=== PATIENT | female | born 2000 | race African-American/Black ===

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

== ENCOUNTER → 2022-03-13 | Outpatient (CLI) | payer MEDICAID ==
[~2022-03-13] MED LIST changes: +BENZ78AE5 TP; +DOCU-239 PO; +IBUP-844 PO
--- NOTE | 2022-03-13 15:41 | Diagnostic Imaging Report ---
INDICATION: anatomy survey TECHNIQUE: Multiple real-time grayscale images were obtained over the gravid uterus. COMPARISON: None FINDINGS: The cervix measures 4.5 cm in length. Placenta is anteriorly positioned and there is no previa. Fetus is in cephalic presentation. The amount of amniotic fluid appears visually appropriate. anatomy survey was performed and the following structures are visualized and normal: Lip/nose, stomach, cerebral ventricles, cerebellum, cisterna magna, spine, four-chamber heart, left ventricular outflow tract, right ventricular outflow tract, diaphragm, umbilical cord insertion and kidneys Biometrical measurements are as follows: Biparietal 4.47 cm, age 19 weeks 4 days. Head circumference 16.95 cm, age 19 weeks 5 days. Abdominal circumference 13.81 cm, age 19 weeks 2 days. Femur length 3.37 cm, age 20 weeks 4 days. Sonographic estimate age: 19 weeks 6 days. Sonographic estimated date of delivery: 08/01/2022. Estimated Weight: 315 gm (+/- 46 gm). LMP percentile: 17%. heart rate: 146 beats per minute. number: 1 of 1. IMPRESSION: 1. Single live intrauterine has normal survey. Dictated by: Dictated on workstation # [id number]
== END ==
LOC: RAD 09:42
PROVIDERS: ATTEND Nurse Practitioner Women's Health
DX: Z34.02 Encounter for supervision of normal first pregnancy, second trimester (principal); Z3A.19 19 weeks gestation of pregnancy
CPT/HCPCS: 76805

== ENCOUNTER 2022-05-12 15:22 | Outpatient (CLI) | payer MEDICAID ==
[~2022-05-12] VITALS: Ht 162.6 cm; Wt 84.3 kg
[2022-05-12 16:43] VITALS: BP 118/63
[2022-05-12 16:45] LABS: BILIRUBIN,URINE NEGATIVE (NEGATIVE); CLARITY,URINE SL CLOUDY; COLOR,URINE YELLOW; GLUCOSE, URINE (UA) NEGATIVE (NEGATIVE); KETONES,URINE NEGATIVE (NEGATIVE); LEUKOCYTE ESTERASE ,URINE 3+ (NEGATIVE); NITRITE,URINE NEGATIVE (NEGATIVE); PROTEIN,URINE NEGATIVE (NEGATIVE)
[2022-05-12 16:52] LABS: BACTERIA,URINE LARGE /HPF
[2022-05-12] MEDS ORDERED: CEPHALEXIN 250 MG (KEFLEX) CAP PO SCH (17:30)
[2022-05-12] MEDS ORDERED: CEPH500T PO (21:43)
--- NOTE | 2022-05-13 08:24 | Physician Query-Final Dx ---
Clinic Account Progress/Dx Physician Query: Please give diagnosis Please include # weeks gestation Date of Service May 12, 2022 at 15:22 MANDIE,JunMay 13, 2022 08:24
== END 2022-05-12 22:08 ==
LOC: WSo 15:22 → LDRP 15:22 → WSo 22:08
PROVIDERS: ATTEND Obstetrics & Gynecology
DX: O9A.213 Injury, poisoning and certain other consequences of external causes complicating pregnancy, third trimester (principal); Z3A.29 29 weeks gestation of pregnancy
CPT/HCPCS: 81000; 87088

== ENCOUNTER 2022-07-24 08:23 | Inpatient (IN) | payer MEDICAID ==
[~2022-07-24] VITALS: Ht 160 cm; Wt 88.7 kg
[2022-07-24] VITALS (42 sets, daily range): BP systolic 84–137; BP diastolic 44–77
[~2022-07-24 08:23] MED LIST changes: +CEPH500T PO
--- NOTE | 2022-07-24 08:57 | History & Physical-OB ---
OB - Chief Complaint & HPI Date/Time Date of Admission: 07/24/22 Date of Admission: Date seen by a Provider: Jul 24, 2022 Time Seen by a Provider: 08:55 Chief Complaint/History OB-Reason for Admission/Chief: Onset of Labor Hx : 3 Hx Para: 2 Expected Date of Delivery: Jul 28, 2022 Gestational Age in Weeks: 39 Gestational Age in Days: 3 Other reason for admission: Active labor Admission Nurse Assessment Rev: Yes History of Labs AB pos Antibody neg see prenatals GBS neg Allergies and Home Medications Allergies Coded Allergies: No Known Drug Allergies (Unverified , 12/11/14) Patient Home Medication List Home Medication List Reviewed: Yes Cephalexin (Cephalexin) 500 Mg Tablet, 500 MG PO QID, (Reported) Entered as Reported by: JANINA POWER on 05/12/222142 OB - History Hx of Present Care: Yes Ultrasounds: Normal mid trimester US Obstetrical Complications: None Medical Complications: None Delivery History Hx Blood Disorders: Yes (Sickle cell trait) Adverse Rxn to Tranfusion: No Patient Past Medical History Sickle cell trait Social History/Family History 2nd Hand Smoke Exposure: No Immunizations Hepatitis A: No Hepatitis B: No Tetanus Booster (TDap): Unknown OB - Admission Exam Physical Exam HEENT: NCAT Heart: Rhythm Normal Lungs: Clear Abdomen: Gravid Extremities: Normal Reflexes: Normal Cervical Dilatation: 7cm Effacement: 75% Station: -1 Membranes: Intact Heart Rate: 130's Accelerations: Accelerations Present Decelerations: No Decelerations Short Term Variability: Present Nut Grinder Variability: Average (6-25) Contractions on Admission: < 5 Minutes Apart Intensity: Firm OB - Assessment/Plan/Diagnosis Assessment Assessment: active labor Admission Dx 22 yo @ 39 week Active labor GBS neg Admission Status: Inpatient Order (span 2 midnights) Reason for Inpatient Admission: 22 yo @ 39 week Active labor GBS neg Plan Plan: Expectant Management BERTRAM SYED DO Jul 24, 2022 08:57
[2022-07-24] MEDS ORDERED: OXYTOCIN PRE-MIX DRIP 500 ML IV ONE (09:03)
[2022-07-24 09:14] LABS: BILIRUBIN,URINE NEGATIVE (NEGATIVE); CLARITY,URINE SL CLOUDY; COLOR,URINE YELLOW; GLUCOSE, URINE (UA) NEGATIVE (NEGATIVE); KETONES,URINE NEGATIVE (NEGATIVE); LEUKOCYTE ESTERASE ,URINE NEGATIVE (NEGATIVE); NITRITE,URINE NEGATIVE (NEGATIVE); PH,URINE 6.5 (5-9); PROTEIN,URINE NEGATIVE (NEGATIVE)
[2022-07-24] MEDS ORDERED: D5 LR IV SOLUTION 1,000 ML IV SCH (09:15)
[2022-07-24 09:18] LABS: BASOPHILS % (AUTO) 0 % (0-10); EOSINOPHILS # (AUTO) 0.1 10^3/uL (0.0-0.3); EOSINOPHILS % (AUTO) 1 % (0-10); HEMATOCRIT 31 % (35-52); HEMOGLOBIN 10.4 g/dL (11.5-16.0); LYMPHOCYTES % (AUTO) 29 % (12-44); MEAN CORPUSCULAR HEMOGLOBIN 25 pg (25-34); MEAN CORPUSCULAR HGB CONC 33 g/dL (32-36); MEAN CORPUSCULAR VOLUME 75 fL (80-99); MEAN PLATELET VOLUME 10.2 fL (9.0-12.2); MONOCYTES # (AUTO) 0.5 10^3/uL (0.0-1.0); MONOCYTES % (AUTO) 5 % (0-12); NEUTROPHILS # (AUTO) 6.7 10^3/uL (1.8-7.8); NEUTROPHILS % (AUTO) 65 % (42-75); PLATELET COUNT 142 10^3/uL (130-400); WHITE BLOOD COUNT 10.3 10^3/uL (4.3-11.0)
[2022-07-24] MEDS ORDERED: fentaNYL 2 mcg/ml BUPIVA 0.125 100 ML ONE (09:19)
[2022-07-24] MEDS ORDERED: BUPIVACAINE 0.25% 10 ML (SENSORCAINE) VIAL ONE (09:32)
[2022-07-24] MEDS ORDERED: fentaNYL INJ 100 MCG/2 ML AMP ONE (09:32)
[2022-07-24 09:36] LABS: BACTERIA,URINE TRACE /HPF; SQUAMOUS EPITHELIAL CELL,UR 0-2 /HPF; WBC,URINE 0-2 /HPF
[2022-07-24] MEDS ORDERED: LACTATED RINGERS 1,000 ML IV ONE (10:45)
[2022-07-24] MEDS ORDERED: ONDANSETRON 4 MG/2 ML (SDV) Z0FRAN IV PRN (10:45)
[2022-07-24] MEDS ORDERED: CATHETER FLUSH 10 ML SYR IV PRN (10:45)
[2022-07-24] MEDS ORDERED: fentaNYL 2 mcg/ml BUPIVA 0.125 100 ML IV SCH (10:45)
[2022-07-24] MEDS ORDERED: diphenhydrAMINE 50 MG/ML INJ (BENADRYL) IV PRN (10:45)
[2022-07-24] MEDS ORDERED: NALOXONE 0.4 MG/ML 1 ML (NARCAN) VIAL IV PRN ×2 (10:45→15:45)
[2022-07-24] MEDS ORDERED: CATHETER FLUSH 10 ML SYR IV SCH ×2 (14:00→22:00)
[2022-07-24] MEDS: OXYTOCIN PRE-MIX DRIP 500 ML IV SCH ×2 (15:15→15:51)
--- NOTE | 2022-07-24 15:28 | OB Labor & Delivery Record ---
L&D History Date of Service Date of Service: Jul 24, 2022 History Expected Date of Delivery: Jul 28, 2022 Gestational Age in Weeks: 39 Hx : 3 Hx Para: 2 Complications Operative Indications (Cesarea: N/A-Vaginal Delivery Intrapartal Events: None L&D Stage1 Stage One Onset of Labor - Date: Jul 24, 2022 Monitors and Tracing Monitor Mode: External Monitor Accelerations: Uniform Monitor Decelerations: None Cash Room Clerk Variability: Average (6-10) Short Term Variability: Present Presentation: Vertex Rupture of Membranes Spontaneous Ruture of Membrane: Yes Amniotic Membrane Rupture Time: 14:00 Amniotic Membrane Fluid Desc.: Clear Progress/Notes Patient admitted in active labor at 7 cm dialated. Received an epidural and no further augmentation, SROM spontanously occured with checking patient and found to be 9-10 cm. L&D Stage2 Stage Two Stage II Date: Jul 24, 2022 Monitors and Tracing Monitor Mode: External Monitor Accelerations: Uniform Monitor Decelerations: Variable Cash Room Clerk Variability: Average (6-10) Short Term Variability: Present Position: Right Occiput Anterior Presentation: Vertex Cord Descript/Complications Cord Vessel Description: 3 Vessels Delivery Type Infant Delivery Method: Spontaneous Vaginal Anterior Shoulder: Right Episiotomy/Perineal Laceration Laceraction(s)/Extensions: No Condition of Infant Delivery 1 minute Comment: 8 5 minute Comment: 9 Notes Live female weight 8lbs 6 oz Condition of Condition of Infant: Living Exam: No Observed Abnormalities Resuscitation Resuscitation: N/A - Spontaneous Resp L&D Stage3 Stage Three Stage III Date: Jul 24, 2022 Pictocin Pitocin Administration Comment: 30 mu wide open after delivery of placetna Placenta Delivery Placenta Delivery: Spontaneous Delivery Summary Summary Estimated blood loss (mL): 300 Attending at delivery: Bertram Syed DO Condition of Delivery Examined: Cervix Examined, Uterus Explored Post Hemorrhage: No Condition of Mother stable Condition of (s) stable BERTRAM SYED DO Jul 24, 2022 15:28
--- NOTE | 2022-07-24 15:33 | Discharge Inst-Women's Service ---
Discharge Inst-Women's Serv Depart Medication/Instructions New, Converted or Re-Newed RX: Transmitted to Pharmacy Final Diagnosis PPD 1 NVD Problems Reviewed?: Yes Consults/Follow Up Additional Follow Up: Yes Orders/Referrals Dr. Syed in 6 weeks Activity Activity: Activity as Tolerated Driving Instructions: No Driving for 1 Week NO SMOKING: NO SMOKING Nothing Inside Vagina: No Douching, No [place], No Tampons Diet Discharge Diet: No Restrictions Symptoms to Report to : Bleeding Excessive, Pain Increased, Fever Over 101 Degrees F, Vaginal Bleeding Increase, Questions/Concerns For Any Problems or Questions: Contact Your Physician BERTRAM SYED DO Jul 24, 2022 15:33
[2022-07-24] MEDS ORDERED: DOCU100C37 PO (15:42)
[2022-07-24] MEDS ORDERED: IBUP-1773 PO (15:42)
[2022-07-24] MEDS ORDERED: ACET-93 PO (15:42)
[2022-07-24] MEDS ORDERED: BENZ78AE5 TP (15:42)
[2022-07-24] MEDS ORDERED: MEASLES,MUMPS,RUBELLA 1 EA INJ SQ ONE (15:45)
[2022-07-24] MEDS ORDERED: TETANUS,DIPTH,PERTUSS P/F (BOOSTRIX) 0.5 ML VIAL IM ONE (15:45)
[2022-07-24] MEDS ORDERED: BENZOCAINE/MENTHOL (DERMOPLAST) 56 ML CAN TP PRN (15:45)
[2022-07-24] MEDS ORDERED: DIBUCAINE 1% OINTMENT 28 GM TUBE TOP PRN (15:45)
[2022-07-24] MEDS ORDERED: WITCH HAZEL(TUCKS) 40 EA JAR TOP PRN (15:45)
[2022-07-24] MEDS: ACETAMINOPHEN 500 MG TAB (TYLENOL) PO SCH ×2 (15:50→21:17)
[2022-07-24] MEDS: IBUPROFEN 600 MG (MOTRIN) TAB PO SCH ×2 (15:51→21:17)
[2022-07-24] MEDS: DOCUSATE SODIUM 100 MG (COLACE) CAP PO SCH (21:17)
[2022-07-25 00:20] VITALS: BP 112/64
[2022-07-25] MEDS: IBUPROFEN 600 MG (MOTRIN) TAB PO SCH ×3 (03:09→17:04)
[2022-07-25] MEDS: ACETAMINOPHEN 500 MG TAB (TYLENOL) PO SCH (03:09)
[2022-07-25 03:10] VITALS: BP 104/55
[2022-07-25 05:38] LABS: BASOPHILS % (AUTO) 0 % (0-10); EOSINOPHILS # (AUTO) 0.1 10^3/uL (0.0-0.3); EOSINOPHILS % (AUTO) 1 % (0-10); HEMATOCRIT 31 % (35-52); LYMPHOCYTES # (AUTO) 3.2 10^3/uL (1.0-4.0); LYMPHOCYTES % (AUTO) 33 % (12-44); MEAN CORPUSCULAR HEMOGLOBIN 25 pg (25-34); MEAN CORPUSCULAR HGB CONC 32 g/dL (32-36); MEAN CORPUSCULAR VOLUME 77 fL (80-99); MONOCYTES # (AUTO) 0.6 10^3/uL (0.0-1.0); MONOCYTES % (AUTO) 6 % (0-12); NEUTROPHILS # (AUTO) 5.8 10^3/uL (1.8-7.8); NEUTROPHILS % (AUTO) 60 % (42-75); PLATELET COUNT 153 10^3/uL (130-400); WHITE BLOOD COUNT 9.8 10^3/uL (4.3-11.0)
[2022-07-25] MEDS ORDERED: PRENATAL VITAMIN 1 EA TAB PO SCH (07:00)
--- NOTE | 2022-07-25 07:33 | Postpartum Progress Note ---
Note Note Day # 1 Subjective: Patient is without complaints. Ambulating, voiding. Tolerating a regular diet without nausea or vomiting. Normal lochia. Pain is well controlled with oral pain medications. Objective: Physical Exam: General - Alert and oriented, no apparent distress Abdomen - Soft, appropriately tender to palpation, non-distended, fundus firm at umbilicus Extremities - no edema, negative Ant's bilaterally Assessment: PPD 1 NVD Acute blood loss anemia Plan: Routine care. Encourage breast feeding. Encourage ambulation. Ferrous sulfate supplementation. Plan for discharge today Vitals - Labs Vital Signs - I&O Vital Signs Date Time Temp Pulse Resp B/P (MAP) Pulse Ox O2 Delivery O2 Flow Rate FiO2 07/25/22 03:10 36.1 95 18 104/55 (71) 99 Room Air 07/25/22 00:20 36.3 94 18 112/64 (80) 100 Room Air 07/24/22 19:42 36.5 106 18 113/75 (88) 98 Room Air 07/24/22 18:30 105 18 114/59 (77) Room Air 07/24/22 18:15 106 18 114/56 (75) Room Air 07/24/22 18:00 95 18 106/51 (69) Room Air 07/24/22 17:45 113 18 109/59 (76) Room Air 07/24/22 17:30 117 18 137/60 (85) Room Air 07/24/22 17:15 84 18 95/58 (70) Room Air 07/24/22 17:00 85 18 99/64 (76) Room Air 07/24/22 16:45 77 18 107/59 (75) Room Air 07/24/22 16:30 85 18 97/44 (61) Room Air 07/24/22 16:15 90 18 99/58 (72) Room Air 07/24/22 16:00 85 18 102/56 (71) Room Air 07/24/22 15:45 93 18 110/56 (74) Room Air 07/24/22 15:30 117 18 109/55 (73) Room Air 07/24/22 15:15 37.6 110 18 102/53 (69) Room Air 07/24/22 15:00 105 18 110/73 (85) 94 Room Air 07/24/22 14:45 113 18 105/59 (74) 92 Room Air 07/24/22 14:30 120 18 108/59 (75) 100 Room Air 07/24/22 14:15 118 18 97/57 (70) 90 Room Air 07/24/22 14:00 111 18 103/56 (72) 100 Room Air 07/24/22 13:45 106 18 111/68 (82) 100 Room Air 07/24/22 13:30 97 18 104/62 (76) 91 Room Air 07/24/22 13:15 111 18 105/64 (78) 91 Room Air 07/24/22 13:00 118 18 101/59 (73) 100 Room Air 07/24/22 12:45 114 18 84/58 (67) 95 Room Air 07/24/22 12:30 93 18 120/58 (78) 100 Room Air 07/24/22 12:15 95 18 108/63 (78) 93 Room Air 07/24/22 12:00 113 18 115/58 (77) 92 Room Air 07/24/22 11:45 95 18 121/58 (79) 96 Room Air 07/24/22 11:30 36.8 117 18 120/56 (77) 100 Room Air 07/24/22 11:15 100 18 118/57 (77) 100 Room Air 07/24/22 11:00 101 18 98 Room Air 07/24/22 10:45 90 18 112/68 (83) 86 Room Air 07/24/22 10:40 93 18 110/57 (74) 100 Room Air 07/24/22 10:35 102 18 107/56 (73) 100 Room Air 07/24/22 10:30 95 18 103/58 (73) 100 Room Air 07/24/22 10:20 92 18 101/54 (70) 100 Room Air 07/24/22 10:15 88 18 107/56 (73) 100 Room Air 07/24/22 10:00 106 18 116/77 (90) 100 Room Air 07/24/22 09:55 107 18 103/57 (72) 98 Room Air 07/24/22 09:50 118 18 121/58 (79) 97 Room Air 07/24/22 09:40 121 18 117/64 (81) 100 Room Air 07/24/22 08:40 37.5 122 18 100 Room Air I & O 07/25/22 07:00 Intake Total 2000 ml Balance 2000 ml Labs Laboratory Tests 07/24/22 08:35: Urine Color YELLOW, Urine Clarity SL CLOUDY, Urine pH 6.5, Urine Specific [place] 1.020, Urine Protein NEGATIVE, Urine Glucose (UA) NEGATIVE, Urine Ketones NEGATIVE, Urine Nitrite NEGATIVE, Urine Bilirubin NEGATIVE, Urine Urobilinogen 0.2, Urine Leukocyte Esterase NEGATIVE, Urine RBC (Auto) NEGATIVE, Urine RBC NONE, Urine WBC 0-2, Urine Squamous Epithelial Cells 0-2, Urine Crystals NONE, Urine Bacteria TRACE, Urine Casts NONE, Urine Mucus NEGATIVE, Urine Culture Indicated NO 07/24/22 08:58: White Blood Count 10.3, Red Blood Count 4.18, Hemoglobin 10.4L, Hematocrit 31L, Mean Corpuscular Volume 75L, Mean Corpuscular Hemoglobin 25, Mean Corpuscular Hemoglobin Concent 33, Red Cell Distribution Width 15.1H, Platelet Count 142, Mean Platelet Volume 10.2, Immature Granulocyte % (Auto) 1, Neutrophils (%) (Auto) 65, Lymphocytes (%) (Auto) 29, Monocytes (%) (Auto) 5, Eosinophils (%) (Auto) 1, Basophils (%) (Auto) 0, Neutrophils # (Auto) 6.7, Lymphocytes # (Auto) 3.0, Monocytes # (Auto) 0.5, Eosinophils # (Auto) 0.1, Basophils # (Auto) 0.0, Immature Granulocyte # (Auto) 0.1, Syphilis Serology Non-Reactive 07/25/22 05:17: White Blood Count 9.8, Red Blood Count 4.03, Hemoglobin 10.0L, Hematocrit 31L, Mean Corpuscular Volume 77L, Mean Corpuscular Hemoglobin 25, Mean Corpuscular Hemoglobin Concent 32, Red Cell Distribution Width 15.2H, Platelet Count 153, Mean Platelet Volume 11.0, Immature Granulocyte % (Auto) 1, Neutrophils (%) (Auto) 60, Lymphocytes (%) (Auto) 33, Monocytes (%) (Auto) 6, Eosinophils (%) (Auto) 1, Basophils (%) (Auto) 0, Neutrophils # (Auto) 5.8, Lymphocytes # (Auto) 3.2, Monocytes # (Auto) 0.6, Eosinophils # (Auto) 0.1, Basophils # (Auto) 0.0, Immature Granulocyte # (Auto) 0.1 BERTRAM SYED DO Jul 25, 2022 07:33
[2022-07-25 08:05] VITALS: BP 106/70
[2022-07-25] MEDS: DOCUSATE SODIUM 100 MG (COLACE) CAP PO SCH (09:00)
[2022-07-25] MEDS ORDERED: FERROUS SULF 325 MG (IRON) TAB PO SCH (09:00)
[2022-07-25 12:50] VITALS: BP 117/77
[2022-07-25 17:05] VITALS: BP 119/65
== END 2022-07-25 17:30 | disposition home or self-care (01) | DRG 806 ==
LOC: WSo 08:23 → LDRP 08:23 → WSo 08:47 → LDRP 08:48
PROVIDERS: ADMIT Obstetrics & Gynecology; ATTEND Obstetrics & Gynecology
PROC: 10E0XZZ Delivery of Products of Conception, External Approach (ICD-10-PCS; principal; 2022-07-24)
DX: O90.81 Anemia of the puerperium (principal); D62 Acute posthemorrhagic anemia; Z37.0 Single live birth; Z3A.39 39 weeks gestation of pregnancy
CPT/HCPCS: 36415; 81000; 85025; 86780; 86850; 86870; 86900; 86901; 99212